=== PATIENT | female | born 1930 | race Caucasian/White ===

== ENCOUNTER 2017-08-08 19:00 | Emergency (ER) | payer MEDICARE, BC ==
[2017-08-08 20:21] VITALS: BP 146/79
--- NOTE | 2017-08-08 20:29 | EDM.PDOC ---
ED HPI GENERAL MEDICAL PROBLEM - General Chief Complaint: Respiratory Problem Stated Complaint: illnesssob is Time Seen by Provider: 08/08/17 19:01 Source of Information: Reports: Patient, Family History Limitations: Reports: No Limitations - History of Present Illness INITIAL COMMENTS - FREE TEXT/NARRATIVE: This lady comes in with complaints of sudden onset of shortness of breath. She has a history of COPD and is on oxygen at home generally 3 L by an oxygen concentrator. She was doing well but then suddenly became short of breath while she was at rest. The oxygen concentrator had been checked was doing okay it was turned up to 5 L per while she was still at 79%. She had used her albuterol inhaler but said it just helps a little bit. She said she is about back to her usual self now. She still a little short of breath but it's the way she usually feels. She feels she can go back home now. She denies any fever there is no cough no chest pain or palpitations. She was seen in clinic for a routine exam and had a full set of labs. Those were reviewed. There were just some minor abnormalities noted. She had a CBC chem profile thyroid functions and the usual anemia labs. Those were normal. - Related Data Allergies Allergy/AdvReac Type Severity Reaction Status Date / Time No Known Allergies Allergy Verified 08/03/13 16:29 Home Meds: Home Meds Latanoprost [Xalatan 0.005% Ophth Soln] 1 drop TOP DAILY 08/03/13 [History] Albuterol Sulfate [Albuterol Sulfate HFA] 1 puff INH ASDIRECTED PRN 08/13/14 [ History] Beclomethasone Dipropionate [Qvar 80 Mcg] 2 puff INH BID 08/13/14 [History] Albuterol Sulfate [Ventolin Hfa] 8 gm INH ASDIRECTED PRN 08/08/17 [History] Tiotropium [Spiriva HandiHaler] 18 mcg INH DAILY 08/08/17 [History] Past Medical History HEENT History: Reports: Glaucoma Cardiovascular History: Reports: Other (See Below) Other Cardiovascular History: PAD Respiratory History: Reports: COPD, Other (See Below) Other Respiratory History: emphasema. chronic respiratory failure. [employer]AD History: Reports: - Past Surgical History GI Surgical History: Reports: Appendectomy Female Surgical History: Reports: Breast Biopsy, Hysterectomy Social & Family History - Tobacco Use Smoking Status *Q: Former Smoker Years of Tobacco use: 50 Used Tobacco, but Quit: Yes Month Tobacco Last Used: 1997 Second Hand Smoke Exposure: No - Caffeine Use Caffeine Use: Reports: Coffee - Alcohol Use Days Per Week of Alcohol Use: 1 Number of Drinks Per Day: 1 Total Drinks Per Week: 1 - Recreational Drug Use Recreational Drug Use: No ED ROS GENERAL - Review of Systems Review Of Systems: ROS reveals no pertinent complaints other than HPI. ED EXAM, GENERAL - Physical Exam Exam: See Below Exam Limited By: No Limitations General Appearance: Alert, No Apparent Distress (This patient just appears to be mildly short of breath), Thin Eye Exam: Bilateral Eye: Normal Inspection Neck: Normal Inspection Respiratory/Chest: Decreased Breath Sounds. No: Rales, Rhonchi, Wheezing Cardiovascular: Normal Peripheral Pulses, Regular Rate, Rhythm GI/Abdominal: Non-Tender Back Exam: Normal Inspection Extremities: Normal Inspection Neurological: Alert, Oriented, Normal Cognition Skin Exam: Warm, Dry, Intact Course - Vital Signs Last Recorded V/S: Last Vital Signs Temp 37.5 C 08/08/17 19:06 Pulse 91 08/08/17 20:20 Resp 16 08/08/17 20:20 BP 146/79 H 08/08/17 20:20 Pulse Ox 100 08/08/17 20:20 - Orders/Labs/Meds Orders: Active Orders 24 hr Category Date Time Status EKG Documentation Completion [RC] ASDIRECTED Care 08/08/17 19:38 Active Chest 1V Frontal [CR] Stat Exams 08/08/17 19:29 Taken EKG 12 Lead [EK] Urgent Ther 08/08/17 19:38 Ordered Labs: Laboratory Tests 08/08/17 Range/Units 19:49 Troponin I < 0.017 (0.000-0.056) ng/mL NT-Pro-B Natriuret Pep 696 H (5-450) pg/mL - Radiology Interpretation Free Text/Narrative:: Chest x-ray shows COPD changes no evidence of any pneumothorax or congestive failure. - Re-Assessments/Exams Free Text/Narrative Re-Assessment/Exam: 08/08/17 20:29 This patient required no medications in the emergency department. After all labs and EKG and chest x-ray are done she says she feels okay and is ready to go home. I suggested somebody stay with her tonight just to be on the safe side. Departure - Departure Time of Disposition: 20:29 Disposition: Home, Self-Care 01 Condition: Fair Clinical Impression: COPD exacerbation - Discharge Information Referrals: Zbigniew Cadet PA [Primary Care Provider] - Additional Instructions: Continue your usual meds. Continue using oxygen per concentrator. It would be best if somebody stays with you tonight just in case she started having more trouble. You are welcome to return to the ER at any time otherwise follow-up with your doctor as needed - My Orders Last 24 Hours: My Active Orders 08/08/17 19:29 Chest 1V Frontal [CR] Stat 08/08/17 19:38 EKG Documentation Completion [RC] ASDIRECTED EKG 12 Lead [EK] Urgent - Assessment/Plan Last 24 Hours: My Active Orders 08/08/17 19:29 Chest 1V Frontal [CR] Stat 08/08/17 19:38 EKG Documentation Completion [RC] ASDIRECTED EKG 12 Lead [EK] Urgent
--- NOTE | 2017-08-11 10:28 | CR ---
Chest 1V Frontal FINDINGS: There is hyperinflation consistent with COPD. The heart and vascular structures are normal in appearance. No infiltrates or effusions are demonstrated. The skeletal structures are unremarkable . IMPRESSION: 1. COPD. 2. No acute findings.
== END 2017-08-08 20:47 | disposition home or self-care (01) ==
LOC: JP.ED 19:00
DX: J44.1 Chronic obstructive pulmonary disease with (acute) exacerbation (principal); Z87.891 Personal history of nicotine dependence; Z90.49 Acquired absence of other specified parts of digestive tract; Z90.710 Acquired absence of both cervix and uterus; Z79.899 Other long term (current) drug therapy
CPT/HCPCS: 36415; 71010; 71010-26; 83880; 84484; 93005; 93010; 99284; 99285-25

== ENCOUNTER 2017-08-27 16:03 | Observation (INO) | payer MEDICARE, BC ==
[2017-08-27] MEDS ORDERED: Albuterol/Ipratropium 3.0-0.5 MG/3 ML Neb Soln NEB ONE (16:59)
[2017-08-27] MEDS ORDERED: Budesonide 0.5 MG/2 ML Neb Susp NEB ONE (16:59)
[2017-08-27] MEDS ORDERED: Lactated Ringers 1,000 ML IV SCH (17:00)
--- NOTE | 2017-08-27 17:01 | EDM.PDOC ---
ED HPI GENERAL MEDICAL PROBLEM - General Chief Complaint: Respiratory Problem Stated Complaint: SOB Time Seen by Provider: 08/27/17 16:39 Source of Information: Reports: Patient, Family, RN Notes Reviewed History Limitations: Reports: No Limitations - History of Present Illness INITIAL COMMENTS - FREE TEXT/NARRATIVE: 87-year-old female presents emergency department today with complaint of shortness of breath, she has a known history of chronic obstructive pulmonary disease is oxygen dependent however over the last couple days it has progressively gotten worse she is using more oxygen and home and she is also developed a fever does complain of some chest pain no nausea vomiting - Related Data Allergies Allergy/AdvReac Type Severity Reaction Status Date / Time No Known Allergies Allergy Verified 08/03/13 16:29 Home Meds: Home Meds Beclomethasone Dipropionate [Qvar 80 Mcg] 2 puff INH BID 08/13/14 [History] Albuterol Sulfate [Ventolin Hfa] 8 gm INH ASDIRECTED PRN 08/08/17 [History] Tiotropium [Spiriva HandiHaler] 18 mcg INH DAILY 08/08/17 [History] Bimatoprost [LUMIGAN 0.01% Ophth Soln] 2.5 ml EYEBOTH DAILY 08/27/17 [History] Brinzolamide [Azopt 1% Ophth Susp] 1 drop EYEBOTH TID 08/27/17 [History] Past Medical History HEENT History: Reports: Glaucoma Cardiovascular History: Reports: Other (See Below) Other Cardiovascular History: PAD Respiratory History: Reports: COPD, Other (See Below) Other Respiratory History: emphasema. chronic respiratory failure. [employer] History: Reports: - Infectious Disease History Infectious Disease History: Reports: Chicken Pox, Measles, Mumps - Past Surgical History GI Surgical History: Reports: Appendectomy Female Surgical History: Reports: Breast Biopsy, Hysterectomy Social & Family History - Tobacco Use Smoking Status *Q: Former Smoker Years of Tobacco use: 50 Used Tobacco, but Quit: Yes Month Tobacco Last Used: many years ago Second Hand Smoke Exposure: No - Caffeine Use Caffeine Use: Reports: Coffee - Alcohol Use Days Per Week of Alcohol Use: 1 Number of Drinks Per Day: 1 Total Drinks Per Week: 1 - Recreational Drug Use Recreational Drug Use: No ED ROS GENERAL - Review of Systems Review Of Systems: See Below Constitutional: Reports: No Symptoms HEENT: Reports: No Symptoms Respiratory: Reports: Shortness of Breath, Wheezing, Cough. Denies: Sputum Cardiovascular: Reports: Chest Pain GI/Abdominal: Reports: No Symptoms : Reports: No Symptoms Musculoskeletal: Reports: No Symptoms Skin: Reports: No Symptoms ED EXAM, GENERAL - Physical Exam Exam: See Below Free Text/Narrative:: General: Elderly female, mild respiratory distress tripoding, alert and oriented x3 HEENT: head is atraumatic normocephalic, eyes pupils equal round reactive to light, sclera clear no conjunctivitis appreciated. Ears tympanic membranes clear and sarabia landmarks and light reflex are present bilaterally canals are clear. Nose no septal deviation, nares are clear, no blood present. Mouth mucosa is moist and pink no erythema or exudate noted in soft palate, tongue is midline uvula is midline, . Neck: Supple no thyromegaly no tracheal deviation. Nodes: Cervical nodes subclavicular nodes nontender no palpable lymphadenopathy noted. Lungs: Breath sounds are distant she does have a next door he wheeze mid to lower lung ramirez bilaterally CV: Regular rate and rhythm S1 and S2 appreciated no murmurs rubs or gallops noted. Abdomen: Soft, nontender, no palpable masses or organomegaly appreciated, no distention no guarding bowel sounds are present, . Neuro: Cranial nerves II through XII grossly intact Skin: Warm and dry, intact Extremities: No lower extremity edema appreciated, Course - Vital Signs Last Recorded V/S: Last Vital Signs Temp 100.8 F H 08/27/17 16:08 Pulse 116 H 08/27/17 17:56 Resp 20 08/27/17 17:56 BP 142/80 H 08/27/17 17:56 Pulse Ox 96 08/27/17 17:56 - Orders/Labs/Meds Orders: Active Orders 24 hr Category Date Time Status EKG Documentation Completion [RC] ASDIRECTED Care 08/27/17 16:58 Active RT Aerosol Therapy [RC] ASDIRECTED Care 08/27/17 16:59 Active Vital Signs [RC] Q1H Care 08/27/17 16:56 Active Chest 1V Frontal [CR] Urgent Exams 08/27/17 16:59 Taken CULTURE BLOOD [BC] Urgent Lab 08/27/17 17:06 Received CULTURE BLOOD [BC] Urgent Lab 08/27/17 17:16 Received Lactated Ringers [Ringers, Lactated] 1,000 ml Med 08/27/17 17:00 Active IV ASDIRECTED Blood Culture x2 Reflex Set [OM.PC] Urgent Oth 08/27/17 16:56 Ordered EKG 12 Lead [EK] Stat Ther 08/27/17 16:58 Ordered Medication Orders Lactated Ringer's (Ringers, Lactated) 1,000 mls @ 500 mls/hr IV ASDIRECTED NOÉ Last Admin: 08/27/17 17:13 Dose: 500 mls/hr Labs: Laboratory Tests 08/27/17 08/27/17 08/27/17 Range/Units 17:05 17:16 17:16 WBC 12.5 H (4.5-11.0) K/uL RBC 3.22 L (3.30-5.50) M/uL Hgb 9.8 L (12.0-15.0) g/dL Hct 32.9 L (36.0-48.0) % MCV 102 H (80-98) fL MCH 30 (27-31) pg MCHC 30 L (32-36) % Plt Count 240 (150-400) K/uL Neut % (Auto) 80 H (36-66) % Lymph % (Auto) 8 L (24-44) % Brantley % (Auto) 9 H (2-6) % Eos % (Auto) 3 (2-4) % Baso % (Auto) 0 (0-1) % Sodium 139 L (140-148) mmol/L Potassium 4.6 (3.6-5.2) mmol/L Chloride 98 L (100-108) mmol/L Carbon Dioxide 37 H (21-32) mmol/L Anion Gap 8.6 (5.0-14.0) mmol/L BUN 25 H (7-18) mg/dL Creatinine 1.3 H (0.6-1.0) mg/dL Est Cr Clr Drug Dosing 18.24 mL/min Estimated GFR (MDRD) 39 L (>60) Glucose 107 H (74-106) mg/dL Lactic Acid (0.4-2.0) mmol/L Calcium 8.4 L (8.5-10.1) mg/dL Total Bilirubin 0.2 (0.2-1.0) mg/dL AST 25 (15-37) U/L ALT 20 (12-78) U/L Alkaline Phosphatase 133 H (46-116) U/L Troponin I (0.000-0.056) ng/mL C-Reactive Protein 3.50 H (0.0-0.3) mg/dL NT-Pro-B Natriuret Pep (5-450) pg/mL Total Protein 6.8 (6.4-8.2) g/dL Albumin 3.1 L (3.4-5.0) g/dL Globulin 3.7 H (2.3-3.5) g/dL Albumin/Globulin Ratio 0.8 L (1.2-2.2) Urine Color Yellow Urine Appearance Slightly cloudy Urine pH 5.0 (4.5-8.0) Ur Specific Jay 1.020 (1.008-1.030) Urine Protein Negative (NEGATIVE) mg/dL Urine Glucose (UA) Normal (NEGATIVE) mg/dL Urine Ketones Negative (NEGATIVE) mg/dL Urine Occult Blood Moderate (NEGATIVE) Urine Nitrite Negative (NEGATIVE) Urine Bilirubin Negative (NEGATIVE) Urine Urobilinogen Normal (NORMAL) mg/dL Ur Leukocyte Esterase Negative (NEGATIVE) Urine RBC 0-5 (0-5) Urine WBC 0-5 (0-5) Ur Epithelial Cells Rare Amorphous Sediment Not seen Urine Bacteria Not seen Urine Mucus Rare 08/27/17 08/27/17 08/27/17 Range/Units 17:16 17:16 17:16 WBC (4.5-11.0) K/uL RBC (3.30-5.50) M/uL Hgb (12.0-15.0) g/dL Hct (36.0-48.0) % MCV (80-98) fL MCH (27-31) pg MCHC (32-36) % Plt Count (150-400) K/uL Neut % (Auto) (36-66) % Lymph % (Auto) (24-44) % Brantley % (Auto) (2-6) % Eos % (Auto) (2-4) % Baso % (Auto) (0-1) % Sodium (140-148) mmol/L Potassium (3.6-5.2) mmol/L Chloride (100-108) mmol/L Carbon Dioxide (21-32) mmol/L Anion Gap (5.0-14.0) mmol/L BUN (7-18) mg/dL Creatinine (0.6-1.0) mg/dL Est Cr Clr Drug Dosing mL/min Estimated GFR (MDRD) (>60) Glucose (74-106) mg/dL Lactic Acid 0.9 (0.4-2.0) mmol/L Calcium (8.5-10.1) mg/dL Total Bilirubin (0.2-1.0) mg/dL AST (15-37) U/L ALT (12-78) U/L Alkaline Phosphatase (46-116) U/L Troponin I < 0.017 (0.000-0.056) ng/mL C-Reactive Protein (0.0-0.3) mg/dL NT-Pro-B Natriuret Pep 669 H (5-450) pg/mL Total Protein (6.4-8.2) g/dL Albumin (3.4-5.0) g/dL Globulin (2.3-3.5) g/dL Albumin/Globulin Ratio (1.2-2.2) Urine Color Urine Appearance Urine pH (4.5-8.0) Ur Specific Jay (1.008-1.030) Urine Protein (NEGATIVE) mg/dL Urine Glucose (UA) (NEGATIVE) mg/dL Urine Ketones (NEGATIVE) mg/dL Urine Occult Blood (NEGATIVE) Urine Nitrite (NEGATIVE) Urine Bilirubin (NEGATIVE) Urine Urobilinogen (NORMAL) mg/dL Ur Leukocyte Esterase (NEGATIVE) Urine RBC (0-5) Urine WBC (0-5) Ur Epithelial Cells Amorphous Sediment Urine Bacteria Urine Mucus Meds: Medications Generic Name Dose Route Start Last Admin Trade Name Freq PRN Reason Stop Dose Admin Lactated Ringer's 1,000 mls @ 500 mls/hr 08/27/17 17:00 08/27/17 17:13 Ringers, Lactated IV 500 mls/hr ASDIRECTED NOÉ Administration Discontinued Medications Generic Name Dose Route Start Last Admin Trade Name Freq PRN Reason Stop Dose Admin Albuterol/Ipratropium 3 ml 08/27/17 16:59 08/27/17 17:22 Duoneb 3.0-0.5 Mg/3 Ml NEB 08/27/17 17:00 3 ml ONETIME ONE Administration Azithromycin 500 mg 08/27/17 18:14 08/27/17 18:20 Zithromax PO 08/27/17 18:15 500 mg NOW STA Administration Budesonide 0.5 mg 08/27/17 16:59 08/27/17 17:38 Pulmicort NEB 08/27/17 17:00 0.5 mg ONETIME ONE Administration Ceftriaxone Sodium 1 gm/ 0 gm 08/27/17 18:14 Lidocaine HCl 2.1 ml IM 08/27/17 18:15 ONETIME ONE Departure - Departure Time of Disposition: 18:30 Disposition: Home, Self-Care 01 Condition: Good Clinical Impression: Bronchitis, COPD exacerbation - Discharge Information Referrals: Zbigniew Cadet PA [Primary Care Provider] - Forms: ED Department Discharge - My Orders Last 24 Hours: My Active Orders 08/27/17 16:56 Vital Signs [RC] Q1H Blood Culture x2 Reflex Set [OM.PC] Urgent 08/27/17 16:58 EKG Documentation Completion [RC] ASDIRECTED EKG 12 Lead [EK] Stat 08/27/17 16:59 RT Aerosol Therapy [RC] ASDIRECTED Chest 1V Frontal [CR] Urgent 08/27/17 17:00 Lactated Ringers [Ringers, Lactated] 1,000 ml IV ASDIRECTED 08/27/17 17:06 CULTURE BLOOD [BC] Urgent 08/27/17 17:16 CULTURE BLOOD [BC] Urgent - Assessment/Plan Last 24 Hours: My Active Orders 08/27/17 16:56 Vital Signs [RC] Q1H Blood Culture x2 Reflex Set [OM.PC] Urgent 08/27/17 16:58 EKG Documentation Completion [RC] ASDIRECTED EKG 12 Lead [EK] Stat 08/27/17 16:59 RT Aerosol Therapy [RC] ASDIRECTED Chest 1V Frontal [CR] Urgent 08/27/17 17:00 Lactated Ringers [Ringers, Lactated] 1,000 ml IV ASDIRECTED 08/27/17 17:06 CULTURE BLOOD [BC] Urgent 08/27/17 17:16 CULTURE BLOOD [BC] Urgent Plan: Assessment Acuity = acute Site and laterality = acute bronchitis complicated in a patient with chronic obstructive pulmonary disease Etiology = unclear etiology Manifestations = fever, tachycardia, hypoxia Location of injury = Home Lab values = WBC elevated 12.5 consistent with leukocytosis hemoglobin low at 9.8 consistent normochromic anemia creatinine elevated 1.3 consistent acute renal failure stage G IIIB troponin was negative CRP elevated at 3.5 unclear etiology probe BNP elevated at 669 probably related to chronic fluid overload albumin low at 3.1 consistent hypoalbuminemia urinalysis unremarkable chest x- ray shows no acute process I did review films myself I cannot appreciate any acute process, the official read from radiology is pending. EKG demonstrates a sinus tachycardia no ST elevations or depressions are noted Plan called discussed case with hospitalist on-call they agreed, and evaluate the patient in the ED for admission blood cultures are drawn and a box Rocephin and azithromycin initiated Patient was in agreement with the plan all questions were answered, they were instructed to return to the emergency department or call for worsening symptoms. This note was dictated using [employer] voice recognition software please call with any questions.
[2017-08-27] MEDS ORDERED: cefTRIAXone 1 GM, Lidocaine 1% 2.1 ML IM ONE ×2 (18:14)
[2017-08-27] MEDS ORDERED: Azithromycin 250 MG Tab PO STA (18:14)
[2017-08-27] MEDS ORDERED: cefTRIAXone 1 GM in Sodium Chloride 0.9% 50 ML IV ONE (18:54)
[2017-08-27] MEDS ORDERED: methylPREDNISolone Sodium Succinate 125 MG/2 ML SDV IV ONE (19:21)
[2017-08-27] MEDS: Sodium Chloride 0.9% 1,000 ML IV SCH (19:38)
--- NOTE | 2017-08-27 20:06 | PCM.HP ---
H&P History of Present Illness - General Admit Problem/Dx: Admission Diagnosis/Problem Admission Diagnosis/Problem Acute bronchitis with chronic obstructive pulmonary disease (COPD) Source of Information: Patient, Family (Daughter Beatriz), Provider, RN History Limitations: Reports: No Limitations - History of Present Illness Initial Comments - Free Text/Narative: - History of Present Illness INITIAL COMMENTS - FREE TEXT/NARRATIVE: 87-year-old female presents emergency department today with complaint of shortness of breath, she has a known history of chronic obstructive pulmonary disease is oxygen dependent however over the last couple days it has progressively gotten worse she is using more oxygen and home and she is also developed a fever does complain of some chest pain no nausea vomiting Lab values = WBC elevated 12.5 consistent with leukocytosis hemoglobin low at 9.8 consistent normochromic anemia creatinine elevated 1.3 consistent acute renal failure stage G IIIB troponin was negative CRP elevated at 3.5 unclear etiology probe BNP elevated at 669 probably related to chronic fluid overload, albumin low at 3.1 consistent hypoalbuminemia, urinalysis unremarkable, chest x- ray shows no acute process, I did review films myself I cannot appreciate any acute process, the official read from radiology is pending. EKG demonstrates a sinus tachycardia no ST elevations or depressions are noted in the ED had blood cultures are drawn and a 1 gram Rocephin and azithromycin initiated. one hour after Zithromax, Mrs. Olivera complains of scratchy throat, mouth feels swollen. no changes in respiratory rate or breath sound. concerns for medication reaction. will continue Solumedrol 62.5 mg Iv every 8 hours.also will give a dose of Benadryl 25mg po. Onset of Symptoms: Reports: Gradual Duration of Symptoms: Reports: Day(s):, Getting Worse (Increased shortness of breath increase use of oxygen for the past 2 days) Location: Reports: Generalized Quality: Reports: Other (Shortness of breath, increased cough.) Severity: Moderate Improves with: Reports: None Worsens with: Reports: None Associated Symptoms: Reports: Cough, Fever/Chills (Temp 100.7), Shortness of Breath - Related Data Allergies/Adverse Reactions: Allergies Allergy/AdvReac Type Severity Reaction Status Date / Time No Known Allergies Allergy Verified 08/03/13 16:29 Home Medications: Home Meds Beclomethasone Dipropionate [Qvar 80 Mcg] 2 puff INH BID 08/13/14 [History] Albuterol Sulfate [Ventolin Hfa] 8 gm INH ASDIRECTED PRN 08/08/17 [History] Tiotropium [Spiriva HandiHaler] 18 mcg INH DAILY 08/08/17 [History] Bimatoprost [LUMIGAN 0.01% Ophth Soln] 2.5 ml EYEBOTH DAILY 08/27/17 [History] Brinzolamide [Azopt 1% Ophth Susp] 1 drop EYEBOTH TID 08/27/17 [History] Past Medical History HEENT History: Reports: Glaucoma Cardiovascular History: Reports: Other (See Below) Other Cardiovascular History: PAD Respiratory History: Reports: COPD, Other (See Below) Other Respiratory History: emphasema. chronic respiratory failure. 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: - Infectious Disease History Infectious Disease History: Reports: Chicken Pox, Measles, Mumps - Past Surgical History GI Surgical History: Reports: Appendectomy Female Surgical History: Reports: Breast Biopsy, Hysterectomy Social & Family History - Tobacco Use Smoking Status *Q: Former Smoker Years of Tobacco use: 50 Used Tobacco, but Quit: Yes Month Tobacco Last Used: many years ago Second Hand Smoke Exposure: No - Caffeine Use Caffeine Use: Reports: Coffee - Alcohol Use Days Per Week of Alcohol Use: 1 Number of Drinks Per Day: 1 Total Drinks Per Week: 1 - Recreational Drug Use Recreational Drug Use: No - Living Situation & Occupation Living situation: Reports: Alone (Lives alone at [facility] in [facility]. Has family in the area, 2 grown children, (one daughter name [place]).) H&P Review of Systems - Review of Systems: Review Of Systems: See Below General: Reports: Fatigue HEENT: Reports: Sore Throat, Other (Dentures) Pulmonary: Reports: Shortness of Breath, Cough Cardiovascular: Reports: No Symptoms (Inpatient admission on O no sorry) Gastrointestinal: Reports: No Symptoms Genitourinary: Reports: Incontinence (Stress incontinence) Musculoskeletal: Reports: No Symptoms Skin: Reports: Lesions (Dried dermatitis to lower legs noted) Psychiatric: Reports: No Symptoms Neurological: Reports: Pre-Existing Deficit (Ambulates with walker) Hematologic/Lymphatic: Reports: No Symptoms Immunologic: Reports: Other (Reaction to Zithromax reports sore throat and tongue feels swollen ) Exam - Exam Exam: See Below - Vital Signs Vital Signs: Last Vital Signs Temp 38.2 C H 08/27/17 16:08 Pulse 113 H 08/27/17 18:38 Resp 16 08/27/17 18:38 BP 153/81 H 08/27/17 18:38 Pulse Ox 96 08/27/17 18:38 Weight: 37.195 kg - Exam Quality Assessment: Supplemental Oxygen General: Alert, Oriented, Cooperative, Other (No acute distress noted) HEENT: PERRLA, Conjunctiva Clear, EACs Clear, EOMI, Hearing Intact, Mucosa Moist & [place] (Tongue is normal shape and size no edema is noted), Nares Patent, Normal Nasal Septum, Posterior Pharynx Clear, Pupils Equal, Pupils Reactive, Other (Wears dentures, pharynx without airway obstruction, no edema noted to the posterior pharynx) Neck: Supple, Trachea Midline Lungs: Clear to Auscultation, Normal Respiratory Effort, Decreased Breath Sounds Cardiovascular: Regular Rate, Regular Rhythm, Normal S1, Normal S2 GI/Abdominal Exam: Normal Bowel Sounds, Soft, Non-Tender, No Organomegaly, No Distention, Pelvis Stable (Female) Exam: Normal External Exam Rectal (Female) Exam: Deferred Back Exam: Normal Inspection, Full Range of Motion Extremities: Normal Inspection, Normal Range of Motion, Non-Tender, No Pedal Edema, Normal Capillary Refill Skin: Warm, Dry, Intact Neurological: Strength Equal Bilateral, Normal Gait, Normal Speech, Normal Tone , Sensation Intact Neuro Extensive - Mental Status: Alert, Oriented x3, Normal Mood/Affect, Normal Cognition, Memory Intact Neuro Extensive - Motor, Sensory, Reflexes: Normal Gait Psychiatric: Alert, Normal Affect, Normal Mood - Patient Data Result Diagrams: 08/27/17 17:16 08/27/17 17:16 *Q Meaningful Use (ADM) - VTE *Q VTE Criteria *Q: - Stroke *Q Stroke Criteria *Q: - AMI *Q AMI Criteria *Q: - Problem List (1) Adverse reaction to drug in therapeutic use SNOMED Code(s): 973529658 ICD Code: T50.905A - ADVERSE EFFECT OF UNSP DRUG/MEDS/BIOL SUBST, INIT Status: Acute Priority: Medium Current Visit: Yes (2) Bronchitis SNOMED Code(s): 64464158 ICD Code: J40 - BRONCHITIS, NOT SPECIFIED ACUTE OR CHRONIC Status: Acute Priority: High Current Visit: Yes (3) COPD exacerbation SNOMED Code(s): 086696096 ICD Code: J44.1 - CHRONIC OBSTRUCTIVE PULMONARY DISEASE W (ACUTE) EXACERBATION Status: Acute Priority: High Current Visit: Yes Problem List Initiated/Reviewed/Updated: Yes Orders Last 24hrs: Active Orders 24 hr Category Date Time Status Resuscitation Status Routine Resus Stat 08/27/17 19:40 Ordered Medication Orders Lactated Ringer's (Ringers, Lactated) 1,000 mls @ 500 mls/hr IV ASDIRECTED [facility] Last Admin: 08/27/17 17:13 Dose: 500 mls/hr Sodium Chloride (Normal Saline) 1,000 mls @ 100 mls/hr IV ASDIRECTED [facility] Last Admin: 08/27/17 19:38 Dose: 100 mls/hr Assessment/Plan Comment:: ASSESSMENT / PLAN -87-year-old female presents emergency department today with complaint of shortness of breath, she has a known history of chronic obstructive pulmonary disease is oxygen dependent however over the last couple days it has progressively gotten worse she is using more oxygen and home and she is also developed a fever does complain of some chest pain no nausea vomiting Lab values = WBC elevated 12.5 consistent with leukocytosis hemoglobin low at 9.8 consistent normochromic anemia creatinine elevated 1.3 consistent acute renal failure stage G IIIB troponin was negative CRP elevated at 3.5 unclear etiology probe BNP elevated at 669 probably related to chronic fluid overload, albumin low at 3.1 consistent hypoalbuminemia, urinalysis unremarkable, chest x- ray shows no acute process, I did review films myself I cannot appreciate any acute process, the official read from radiology is pending. EKG demonstrates a sinus tachycardia no ST elevations or depressions are noted In the ED had blood cultures are drawn and a 1 gram Rocephin and azithromycin initiated. one hour after Zithromax, Mrs. Olivera complains of scratchy throat, mouth feels swollen. no changes in respiratory rate or breath sound. concerns for medication reaction. will continue Solumedrol 62.5 mg Iv every 8 hours.also will give a dose of Benadryl 25mg po. Plan -Admit to [address] [place] [address] for further monitoring Acute Bronchitis with COPD exacerbation -Rocephin 1 g IV every 24 hours -Oxygen per nasal cannula to keep sats greater than 92% -IV fluids for rehydration NS at 100 mL per hour -Duo nebs every 6 hours scheduled -Albuterol nebs premixed every 4 hours when necessary - IV Solu-Medrol 62.5 mg IV every 8 hours -Advise to notify nurses of any chest pain or other symptoms -And a.m. labs: CBC, BMP -blood cultures and sputum cultures pending Medication reaction to Zithromax -IV Solu-Medrol every 8 hours -Benadryl 25 mg by mouth every 4 hours when necessary -Continue to monitor closely for any signs of respiratory distress or any throat swelling Maintenance issues -Orders home meds: -Nutrition: Regular diet -Cevallos catheter not indicated at this time -DVT: Ambulate -GI Prophalaxis; Protonix 40mg daily -Consult OT for discharge planning CODE STATUS: Full Admission status: Admit to Observation -I expect this patient to stay less than 24 hours, not to exceed 96 hours for evaluation and management of this problem. Disposition: Home Primary care provider: Dr. Zachery Louie and RHETT Rebolledo Hospitalist: Dr. Susan Villanueva
[2017-08-27] MEDS ORDERED: Pantoprazole 40 MG Vial IV ONE (20:34)
[2017-08-27] MEDS ORDERED: Acetaminophen 325 MG Tab PO PRN (20:34)
[2017-08-27] MEDS ORDERED: Docusate Sodium 100 MG Cap PO PRN (20:34)
[2017-08-27] MEDS ORDERED: Ondansetron 4 MG Tab.DIS PO PRN (20:34)
[2017-08-27] MEDS ORDERED: Albuterol 0.083% 2.5 MG/3 ML Neb Soln NEB PRN (20:34)
[2017-08-27] MEDS ORDERED: oxyCODONE 5 MG Tab PO PRN (20:34)
[2017-08-27] MEDS ORDERED: LORazepam 2 MG/ML MDV IV PRN (20:34)
[2017-08-27] MEDS ORDERED: Zolpidem 5 MG Tab PO PRN (20:34)
[2017-08-27] MEDS ORDERED: Bisacodyl 5 MG Tab PO PRN (20:34)
[2017-08-27] MEDS ORDERED: Pneumococcal Polyvalent-23 Vaccine 0.5 ML SDV IM ONE (21:12)
[2017-08-27] MEDS ORDERED: Codeine/guaiFENesin 100mg-10 MG/5 ML Syrup 10 ML Cup PO PRN (21:32)
[2017-08-27] MEDS ORDERED: Albuterol/Ipratropium 3.0-0.5 MG/3 ML Neb Soln INH SCH (23:00)
[2017-08-28] MEDS ORDERED: methylPREDNISolone Sodium Succinate 125 MG/2 ML SDV IVPUSH SCH (03:00)
[2017-08-28] MEDS: Albuterol/Ipratropium 3.0-0.5 MG/3 ML Neb Soln INH SCH ×3 (03:01→10:43)
[2017-08-28] MEDS: Sodium Chloride 0.9% 1,000 ML IV SCH (05:38)
[2017-08-28] MEDS ORDERED: Albuterol/Ipratropium 3.0-0.5 MG/3 ML Neb Soln INH SCH (07:00)
[2017-08-28] MEDS ORDERED: LORazepam 2 MG/ML MDV IV PRN (07:13)
[2017-08-28] MEDS ORDERED: BIMATOPROST EYEBOTH SCH (09:10)
[2017-08-28] MEDS ORDERED: Pneumococcal Polyvalent-23 Vaccine 0.5 ML SDV IM ONE (10:00)
--- NOTE | 2017-08-28 10:00 | CR ---
Portable chest There is severe hyperinflation. There are no infiltrates or effusions. The heart and vascular structu res are within normal limits. Impression: 1. Advanced COPD. 2. No acute findings.
--- NOTE | 2017-08-28 10:26 | PCM.DCSUM1 ---
Discharge Summary - Hospital Course Brief History: 87-year-old female with history of oxygen dependent COPD who presented with increasing cough, shortness of breath and fever. She was admitted for observation with presumed bronchitis and COPD exacerbation. - Discharge Data Discharge Date: 08/28/17 Discharge Disposition: Home, Self-Care 01 Condition: Good - Discharge Diagnosis/Problem(s) (1) Bronchitis SNOMED Code(s): 39308215 ICD Code: J40 - BRONCHITIS, NOT SPECIFIED ACUTE OR CHRONIC Status: Acute Priority: High (2) COPD exacerbation SNOMED Code(s): 051223585 ICD Code: J44.1 - CHRONIC OBSTRUCTIVE PULMONARY DISEASE W (ACUTE) EXACERBATION Status: Acute Priority: High - Patient Summary/Data Consults: Consultations 08/27/17 20:34 OT Evaluation and Treatment [CONS] Routine Please Evaluate and Treat. OT Reason for Consult: Discharge Planning This query below is only for informational purposes and is not editable. Hospital Course: Aubrie was admitted last night for observation after presenting with respiratory distress. She was found to have evidence for bronchitis and started on antibiotics and steroids in the emergency room. After observation overnight she feels much better this morning. She is back down to her usual supplemental oxygen requirement. She does have a mild cough but symptomatically feels much better. She is not wheezing this morning. She has not had any fevers. The swelling in throat discomfort from the reaction to azithromycin have resolved. She feels well and would like to go home at this time. I do recommend for additional days of antibiotics and for additional days of prednisone for treatment of bronchitis. Azithromycin has been added to her allergy list. She has inhalers, nebulizers and supplemental oxygen at home. - Patient Instructions Diet: Regular Diet as Tolerated Activity: As Tolerated Showering/Bathing: May Shower Notify Provider of: Fever, Increased Pain, Nausea and/or Vomiting Other/Special Instructions: 1. You Were in the hospital for management of acute bronchitis with a COPD exacerbation. You have improved with therapies provided in the emergency room and in the hospital. I recommend two short courses of medication as listed below to help complete the treatment for your bronchitis. --prednisone 40 mg taken once daily in the morning. Your first dose is due tomorrow morning. This is an anti-inflammatory medication that will help improve your breathing. --Doxycycline 100 mg capsules taken twice daily with food. Your first dose is due tonight. This is an antibiotic that will help treat suspected bacterial bronchitis. 2. While you were in the hospital he received a dose of azithromycin. We suspect you had an adverse reaction to this antibiotic and have listed it as an allergy. Because the reaction was throat tightness I would recommend that you never take this medication again as it could cause a life-threatening reaction. 3. Please continue your other home medications as previously prescribed. 4. Seek medical attention if he develops fever greater than 101, have sudden worsening of your shortness of breath, you develop chest pain or you have persistent vomiting or diarrhea. - Discharge Plan Prescriptions/Med Rec: Doxycycline Hyclate 100 mg PO BID #8 capsule predniSONE [Prednisone] 40 mg PO DAILY #6 tablet Home Medications: Home Meds Beclomethasone Dipropionate [Qvar 80 Mcg] 2 puff INH BID 08/13/14 [History] Albuterol Sulfate [Ventolin Hfa] 8 gm INH ASDIRECTED PRN 08/08/17 [History] Tiotropium [Spiriva HandiHaler] 18 mcg INH DAILY 08/08/17 [History] Bimatoprost [LUMIGAN 0.01% Ophth Soln] 2.5 ml EYEBOTH DAILY 08/27/17 [History] Brinzolamide [Azopt 1% Ophth Susp] 1 drop EYEBOTH TID 08/27/17 [History] Doxycycline Hyclate 100 mg PO BID #8 capsule 08/28/17 [Rx] predniSONE [Prednisone] 40 mg PO DAILY #6 tablet 08/28/17 [Rx] Patient Handouts: Doxycycline tablets or capsules, Acute Bronchitis Referrals: Zbigniew Cadet PA [Primary Care Provider] - (f/u if symptoms do not continue to get better or they get worse) - Discharge Summary/Plan Comment DC Time >30 min.: No (25) - Patient Data Vitals - Most Recent: Last Vital Signs Temp 35.5 C 08/28/17 07:54 Pulse 100 08/28/17 07:54 Resp 17 08/28/17 07:54 BP 141/53 H 08/28/17 07:54 Pulse Ox 90 L 08/28/17 07:54 Weight - Most Recent: 37.195 kg I&O - Last 24 hours: Intake & Output 08/27/17 08/28/17 08/28/17 22:59 06:59 14:59 Intake Total 918 Balance 918 Lab Results - Last 24 hrs: Laboratory Results - last 24 hr 08/28/17 08/28/17 Range/Units 05:40 05:40 WBC 12.0 H (4.5-11.0) K/uL RBC 2.99 L (3.30-5.50) M/uL Hgb 9.1 L (12.0-15.0) g/dL Hct 30.6 L (36.0-48.0) % MCV 102 H (80-98) fL MCH 30 (27-31) pg MCHC 30 L (32-36) % Plt Count 205 (150-400) K/uL Neut % (Auto) 97 H (36-66) % Lymph % (Auto) 2 L (24-44) % [place] % (Auto) 1 L (2-6) % Eos % (Auto) 0 L (2-4) % Baso % (Auto) 0 (0-1) % Sodium 143 (140-148) mmol/L Potassium 4.3 (3.6-5.2) mmol/L Chloride 104 (100-108) mmol/L Carbon Dioxide 35 H (21-32) mmol/L Anion Gap 8.3 (5.0-14.0) mmol/L BUN 21 H (7-18) mg/dL Creatinine 0.8 (0.6-1.0) mg/dL Est Cr Clr Drug Dosing 29.64 mL/min Estimated GFR (MDRD) > 60 (>60) Glucose 147 H (74-106) mg/dL Calcium 8.3 L (8.5-10.1) mg/dL Med Orders - Current: Current Medications Acetaminophen (Tylenol) 650 mg PO Q4H PRN PRN Reason: Pain (Mild 1-3)/fever Albuterol (Proventil Neb Soln) 2.5 mg NEB Q4H PRN PRN Reason: Shortness Of Breath/wheezing Albuterol/Ipratropium (Duoneb 3.0-0.5 Mg/3 Ml) 3 ml INH QIDRT NOÉ Last Admin: 08/28/17 07:12 Dose: 3 ml Bisacodyl (Dulcolax) 5 mg PO DAILY PRN PRN Reason: Constipation Brinzolamide (Azopt 1% Ophth Susp) ml EYEBOTH TID [facility] Diphenhydramine HCl (Benadryl) 25 mg PO Q4H [facility] Docusate Sodium (Colace) 100 mg PO BID PRN PRN Reason: Constipation Guaifenesin/Codeine Phosphate (Robitussin Ac) 10 ml PO Q4H PRN PRN Reason: Cough Last Admin: 08/27/17 21:56 Dose: 10 ml Sodium Chloride (Normal Saline) 1,000 mls @ 100 mls/hr IV ASDIRECTED [facility] Last Admin: 08/28/17 05:38 Dose: 100 mls/hr Ceftriaxone Sodium 1 gm/ (Sodium Chloride) 50 mls @ 100 mls/hr IV Q24H [facility] Lorazepam (Ativan) 0.5 - 1 mg IV Q6H PRN PRN Reason: Nausea/Vomiting Non-Formulary Medication (Bimatoprost [Lumigan 0.01% Ophth Soln]) 2.5 ml EYEBOTH DAILY [facility] Ondansetron HCl (Zofran Odt) 4 mg PO Q6H PRN PRN Reason: Nausea able to take PO Oxycodone HCl (Oxycodone) 5 mg PO Q4H PRN PRN Reason: Pain (moderate 4-6) Zolpidem Tartrate (Ambien) 5 mg PO BEDTIME PRN PRN Reason: Sleep Discontinued Medications Albuterol/Ipratropium (Duoneb 3.0-0.5 Mg/3 Ml) 3 ml NEB ONETIME ONE Stop: 08/27/17 17:00 Last Admin: 08/27/17 17:22 Dose: 3 ml Albuterol/Ipratropium (Duoneb 3.0-0.5 Mg/3 Ml) 3 ml INH Q6H [facility] Last Admin: 08/28/17 01:22 Dose: Not Given Albuterol/Ipratropium (Duoneb 3.0-0.5 Mg/3 Ml) 3 ml INH 0700,1100,1500,2100 [facility] Azithromycin (Zithromax) 500 mg PO NOW STA Stop: 08/27/17 18:15 Last Admin: 08/27/17 18:20 Dose: 500 mg Budesonide (Pulmicort) 0.5 mg NEB ONETIME ONE Stop: 08/27/17 17:00 Last Admin: 08/27/17 17:38 Dose: 0.5 mg Ceftriaxone Sodium 1 gm/ (Lidocaine HCl 2.1 ml) 0 gm IM ONETIME ONE Stop: 08/27/17 18:15 Last Admin: 08/27/17 21:37 Dose: Not Given Lactated Ringer's (Ringers, Lactated) 1,000 mls @ 500 mls/hr IV ASDIRECTED [facility] Last Admin: 08/27/17 17:13 Dose: 500 mls/hr Ceftriaxone Sodium 1 gm/ (Sodium Chloride) 50 mls @ 100 mls/hr IV ONETIME ONE Stop: 08/27/17 19:23 Last Admin: 08/27/17 19:08 Dose: 100 mls/hr Lorazepam (Ativan) 0 mg IV Q6H PRN PRN Reason: Nausea/Vomiting Methylprednisolone Sodium Succinate (Solu-Medrol) 62.5 mg IV ONETIME ONE Stop: 08/27/17 19:22 Last Admin: 08/27/17 19:38 Dose: 62.5 mg Methylprednisolone Sodium Succinate (Solu-Medrol) 62.5 mg IVPUSH Q8H [facility] Last Admin: 08/28/17 02:59 Dose: 62.5 mg Pantoprazole Sodium (Protonix Iv) 40 mg IV ONETIME ONE Stop: 08/27/17 20:35 Last Admin: 08/27/17 21:20 Dose: Not Given Pneumococcal Polyvalent Vaccine (Pneumovax 23) 0.5 ml IM .ONCE ONE Stop: 08/27/17 21:13 Last Admin: 08/28/17 01:22 Dose: Not Given Pneumococcal Polyvalent Vaccine (Pneumovax 23) 0.5 ml IM .ONCE ONE Stop: 08/28/17 10:01 - Exam Quality Assessment: Reports: Supplemental Oxygen General: Reports: Alert, Oriented, Cooperative, No Acute Distress Neck: Reports: Supple Lungs: Reports: Clear to Auscultation, Normal Respiratory Effort. Denies: Wheezing Cardiovascular: Reports: Regular Rate, Regular Rhythm Extremities: No Pedal Edema Psy/Mental Status: Reports: Alert, Normal Affect *Q Meaningful Use (DIS) - VTE *Q VTE Criteria *Q: - Stroke *Q Stroke Criteria *Q: - AMI *Q AMI Criteria *Q:
[2017-08-28 10:58] VITALS: BP 94/46
[2017-08-28] MEDS ORDERED: predniSONE 20 MG Tab PO ONE (11:00)
[2017-08-28] MEDS ORDERED: cefTRIAXone 1 GM in Sodium Chloride 0.9% 50 ML IV SCH (18:00)
[2017-08-28] MEDS ORDERED: diphenhydrAMINE 25 MG Cap PO SCH (21:00)
== END 2017-08-28 12:25 | disposition home or self-care (01) ==
LOC: JP.ED 16:03 → JP.MS 19:37
PROVIDERS: ADMIT Internal Medicine; ATTEND Internal Medicine
DX: J44.0 Chronic obstructive pulmonary disease with (acute) lower respiratory infection (principal); J20.9 Acute bronchitis, unspecified; T36.3X5A Adverse effect of macrolides, initial encounter; I73.9 Peripheral vascular disease, unspecified; J96.10 Chronic respiratory failure, unspecified whether with hypoxia or hypercapnia; Z79.899 Other long term (current) drug therapy; Z90.49 Acquired absence of other specified parts of digestive tract; Z90.710 Acquired absence of both cervix and uterus; Z98.890 Other specified postprocedural states; Z87.891 Personal history of nicotine dependence; Z88.1 Allergy status to other antibiotic agents
CPT/HCPCS: 36415; 71010; 80048; 80053; 81001; 83605; 83880; 84484; 85025; 86140; 87040; 93005; 94640; 96361; 96365; 96375; 99285; A9270; J0696; J2930; J7040; J7050; J7120; J7620; 93010; 96376; 99217; 99220; G0378; J7626